=== PATIENT | male | born 1985 | race Caucasian/White ===

== ENCOUNTER 2018-12-01 02:40 | Emergency (ER) | payer OTHER ==
[~2018-12-01] VITALS: Ht 182.9 cm; Wt 98.4 kg
--- NOTE | 2018-12-01 02:40 | NUR ---
TO BED # 04 AMBULATORY
[2018-12-01 02:42] VITALS: BP 150/90
--- NOTE | 2018-12-01 02:45 | NUR ---
PT CAME INTO ER WITH C/O PAIN TO THE LEFT SIDE OF RIB CAGE/CHEST X6 DAYS P/S WORK RELATED INJURY. PT STATED HE WAS LIFTING AN APPLIANCE AND FELT A POP AND THEN HAD SHARP PAIN. PT PAIN LEVEL IS 9/10 AT THIS TIME. PT IS A/OX4. PT DENIES SOB, OR ANY OTHER INJURY. SAFETY PRECAUTIONS IN PLACE. CONTINUE TO MONITOR.
--- NOTE | 2018-12-01 02:52 | NUR ---
Dr. Junior examining patient.
[2018-12-01] MEDS ORDERED: KETOROLAC 60 MG/2 ML VIAL IM ONE (03:00)
--- NOTE | 2018-12-01 03:10 | NUR ---
EKG WAS DONE BY EMT. PT TOLERATED WELL,
--- NOTE | 2018-12-01 03:20 | NUR ---
XRAY AT BEDSIDE
--- NOTE | 2018-12-01 03:27 | NUR ---
pt stated his pain level has decreased to a level 4/10. pt states he still feels pressure under breast bone/chest. er md made aware of status.
[2018-12-01 03:46] VITALS: BP 150/90
--- NOTE | 2018-12-01 03:46 | NUR ---
Patient discharged with v/s stable. Written and verbal after care instructions given and explained. Patient alert, oriented and verbalized understanding of instructions. Ambulatory with steady gait. All questions addressed prior to discharge. ID band removed. Patient advised to follow up with PMD. Rx of motrin was given. Patient educated on indication of medication including possible reaction and side effects. Opportunity to ask questions provided and answered. pt stated that the pain medication was effective and pain level decreased to 4/10 prior to d/c.
== END 2018-12-01 03:46 | disposition home or self-care (01) ==
LOC: MED 02:40
DX: S29.011A Strain of muscle and tendon of front wall of thorax, initial encounter (principal); M25.512 Pain in left shoulder; R03.0 Elevated blood-pressure reading, without diagnosis of hypertension; Z88.0 Allergy status to penicillin; X50.0XXA Overexertion from strenuous movement or load, initial encounter; Y93.89 Activity, other specified; Y92.89 Other specified places as the place of occurrence of the external cause; Y99.0 Civilian activity done for income or pay
CPT/HCPCS: 71045; 93005; 96372; 99283; J1885; Q0092